=== PATIENT | male | born 1990 | race African-American/Black ===

== ENCOUNTER 2022-05-08 10:34 | Emergency (ER) | payer SELFPAY ==
--- NOTE | ~2022-05-08 | CT_ITS ---
EXAMINATION: CT abdomen pelvis w con INDICATION: Bilateral flank pain TECHNIQUE: Computed tomographic images of the abdomen and pelvis were obtained after the administrati on of 100 cc of Omnipaque 350 intravenous contrast. The dose-length product (DLP) was 370.99 mGy-cm. Automated exposure control and iterative reconstruction technique were employed. COMPARISON: None available FINDINGS: The lung bases are clear. The heart size is normal. The liver, spleen, pancreas, gallbladde r, and adrenal glands are normal. The kidneys are unremarkable. No pathologically enlarged abdominal or pelvic lymph nodes are identified. There is no free intraperitoneal gas or evidence of bowel obstr uction. The proximal appendix measures up to 9 mm. No periappendiceal inflammatory change is identifi ed. There is gas in the nondistended distal appendix. IMPRESSION: 1. Unremarkable kidneys. 2. Mild distention of the proximal appendix without significant periappendiceal fat stranding. Findin gs could reflect early acute appendicitis. Reviewed, dictated and finalized at location B. [facility] [employer] IMPRESSION: 1. Unremarkable kidneys. 2. Mild distention of the proximal appendix without significant periappendiceal fat stranding. Findings could reflect early acute appendicitis.
--- NOTE | ~2022-05-08 | US_ITS ---
EXAMINATION: US scrotum doppler DATE: 05/08/2022 15:00 INDICATION: Testicular pain TECHNIQUE: Testicular sonogram utilizing grayscale and Doppler COMPARISON: None. FINDINGS: The right testis measures 4.2 x 2.9 x 2.7 cm. The left testis measures 4.5 x 2.4 x 2.6 cm. Symmetric normal grayscale appearance to both testes. There is normal vascular flow to both testes. The right e pididymis is normal with normal vascular flow. 4 mm anechoic left epididymal head cyst. The left epid idymis is otherwise normal with normal vascular flow. Very small bilateral anechoic hydroceles. Mild left varicocele. IMPRESSION: 1. 4 mm left epididymal cyst. Otherwise normal testes and epididymides. 2. Very small bilateral hydroceles and mild left varicocele. Reviewed, dictated and finalized at location A. DENTIAL NURSE
[2022-05-08 10:40] VITALS: BP 146/86; PULSE 93; RESP 16; TEMP 36.9; O2SAT 100
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
[2022-05-08 11:00] LABS: Basophils Percent Auto 0.3 % (0.2-1.2); Eosinophils Absolute Auto 0.1 K/mm3 (0-0.3); Eosinophils Percent Auto 0.9 % (0-4.4); Hematocrit 46.2 % (42.0-52.0); Hemoglobin 15.4 g/dL (14.0-18.0); Immature Granulocyte Absolute 0.05 K/mm3 (0.00-0.031); Immature Granulocyte Percent A 0.3 % (0-0.5); Lymphocytes Absolute Auto 3.04 K/mm3 (0.9-3.2); Mean Corpuscular HGB Conc 33.3 g/dl (32-36); Mean Corpuscular Hemoglobin 31.7 pg (26-34); Mean Corpuscular Volume 95.1 fl (80-100); Mean Platelet Volume 9.4 fl (7.4-10.4); Monocytes Absolute Auto 1.3 K/mm3 (0.1-0.6); Monocytes Percent Auto 8.3 % (2.6-8.5); Neutrophils Absolute Auto 11.4 K/mm3 (1.3-6.7); Neutrophils Percent Auto 71.2 % (45.5-73.1); Platelet Count Result 205 k/mm3 (150-375); Red Blood Count 4.86 M/mm3 (4.6-6.20); Red Cell Distribution Width 14.2 % (11.5-14.5)
[2022-05-08 11:05] LABS: Appearance Urine Clear (Clear); Bilirubin Urine Negative (Negative); Blood Urine Trace-lysed (Negative); Color Urine Yellow (Yellow); Glucose Urine UA Negative (Negative); Ketones Urine Trace mg/dL (Negative); Leukocyte Esterase Ur Trace LEU/UL (Negative); Nitrate Urine Negative (Negative); Protein Urine Negative (Negative); Urobilinogen Urine 0.2 mg/dL (<2.0); pH Urine 5.5 (5.0-9.0)
[2022-05-08] MEDS: SODIUM CHLORIDE 0.9% IV 1,000 ML 999 ML IV CONT (11:05)
[2022-05-08 11:11] LABS: Mucus Urine Rare /lpf; RBC Urine 0-2 /hpf (0-2)
[2022-05-08 11:13] LABS: Alanine Aminotransferase 19 U/L (6-50); Albumin Level 4.7 g/dL (3.5-5.1); Alkaline Phosphatase 77 U/L (38-126); Anion Gap 15 mmol/L (8-16); Aspartate Amino Transferase 28 U/L (17-59); Bilirubin,Total 0.7 mg/dL (0.2-1.3); Blood Urea Nitrogen 11 mg/dL (9-20); Calcium 8.8 mg/dL (8.4-10.2); Carbon Dioxide 28 mmol/L (22-30); Chloride 98 mmol/L (98-107); Estimated CRCL calculation 102 ml/min; Estimated Glomerular Filt Rate > 60; Glucose 96 mg/dL (65-110); Lactic Acid Reflex 1.7 mmol/L (0.7-2.0); Sodium 141 mmol/L (137-145)
[2022-05-08 11:17] LABS: Add Urine Microscopic? YES
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
== END 2022-05-08 17:35 | disposition home or self-care (01) ==
PROVIDERS: Emergency Provider Emergency Medicine
DX: K35.80 Unspecified acute appendicitis (principal); N50.82 Scrotal pain; M54.50 Low back pain, unspecified; D72.829 Elevated white blood cell count, unspecified; F17.210 Nicotine dependence, cigarettes, uncomplicated; F10.90 Alcohol use, unspecified, uncomplicated; N50.3 Cyst of epididymis; I86.1 Scrotal varices; N43.3 Hydrocele, unspecified
CPT/HCPCS: 36415; 74177; 76870; 80053; 81001; 83605; 85025; 87070; 87491; 87591; 87661; 87808; 93976; 96361; 96365; 99284; J2543; J7030; Q9967